=== PATIENT | female | born 1950 | race Two or more races ===

== ENCOUNTER 2020-10-13 07:15 | Inpatient (IN) | payer OTHER ==
[~2020-10-13] VITALS: Ht 157.5 cm; Wt 81.6 kg
[2020-10-13] MEDS ORDERED: SIMVASTATIN20 MG PO (09:38)
[2020-10-13] MEDS ORDERED: ATACAND16 MG PO (09:38)
[2020-10-13] MEDS ORDERED: SKELAXIN800 MG PO (09:39)
[2020-10-13] MEDS ORDERED: CATAFLAN PO (09:39)
[2020-10-19] MEDS ORDERED: DICLOFENAC POTA50 MG (08:14)
[2020-10-20] MEDS ORDERED: CIPRO500 MG PO (16:53)
[2020-10-20] MEDS ORDERED: ELIQUIS2.5 MG PO (16:53)
[2020-10-20] MEDS ORDERED: PERCOCET 5-3251 EACH PO (16:53)
== END 2020-10-20 20:30 | disposition home or self-care (01) | DRG 470 ==
LOC: SURH 10-18 07:15 → SURG 10-18 08:42 → O/R 10-18 08:42 → SURH 10-18 13:30 → SURG 10-18 16:47
PROVIDERS: ADMIT Orthopaedic Surgery; ATTEND Orthopaedic Surgery
PROC: 0MNP0ZZ Release Left Knee Bursa and Ligament, Open Approach (ICD-10-PCS; 2020-10-18)
PROC: 0SRD0J9 Replacement of Left Knee Joint with Synthetic Substitute, Cemented, Open Approach (ICD-10-PCS; principal; 2020-10-18 13:30)
DX: M17.12 Unilateral primary osteoarthritis, left knee (principal); D62 Acute posthemorrhagic anemia; M81.0 Age-related osteoporosis without current pathological fracture; M22.12 Recurrent subluxation of patella, left knee; E66.01 Morbid (severe) obesity due to excess calories; Z20.828 Contact with and (suspected) exposure to other viral communicable diseases